=== PATIENT | male | born 1955 | race Caucasian/White ===

== ENCOUNTER 2016-10-09 20:35 | Inpatient (IN) | payer OTHER ==
[~2016-10-09] VITALS: Ht 172.7 cm; Wt 57.1 kg
[~2016-10-09 20:35] MED LIST: ADVAIR HFA120 INHALA IH; ADVIL200 MG PO; AERONEB GO NEB1 EACH MC; ALBUTEROL2.5 MG/3 M IH; ALEVE220 MG PO; AMLODIPINE BESY10 MG PO; AMLODIPINE BESYL5 MG PO; ASPIR 8181 M1 PO; ATROVENT 00.5 MG/2.5 IH; CEFDINIR300 MG PO; DUONEB 2.5-0.5 M3 ML IH; KEPPRA500 MG PO; LEVAQUIN500 MG PO; LEVETIRACETAM500 MG PO; LISINOPRIL10 MG PO; LISINOPRIL20 MG PO; LOSARTAN POTAS100 MG PO; NICOTINE PATCH1 EAC2 TD; OMEPRAZOLE20 MG PO; OXAPROZIN600 MG PO; PAROXETINE HCL20 MG PO; PREDNISONE10 MG PO; PREDNISONE20 MG PO; PROAIR HFA8.5 GM IH; PROVENTIL,2.5 MG/3 M IH; SPIRIVA RESPIMAT4 GM IH; SPIRIVA1 INHALATI IH; SYMBICORT60 INHALAT IH; TAMSULOSIN HCL0.4 MG PO; TRAVEL SICKNESS25 MG PO
[2016-10-09 21:30] LABS: EOSINOPHIL (%) 0.5 % (0-5); HEMATOCRIT 40.1 % (38.0-50.0); IMMATURE GRANULOCYTE (%) 0.3 % (0.0-0.7); IMMATURE GRANULOCYTE COUNT 0.2 K/uL; LYMPHOCYTE COUNT 1.3 K/uL (1.0-2.8); MCH 36.3 PG (29.0-34.0); MCHC 36.2 G/DL (30.0-36.0); MCV 100.3 FL (86-99); MEAN PLAT.VOLUME 8.9 uM^3 (9.0-12.4); MONOCYTE (%) 12.6 % (3-12); MONOCYTE COUNT 0.8 K/uL (0-0.8); NEUTROPHIL (%) 66.3 % (45-76); NEUTROPHIL COUNT 4.2 K/uL (1.8-6.4); PLATELET COUNT 181 K/uL (156-360); RBC DIS.WIDTH-SD 47.2 % (39-53); WHITE BLOOD COUNT 6.4 K/uL (4.1-10.2)
[2016-10-09 21:44] LABS: D-DIMER ELISA 0.52 mg/L FEU (< 0.57)
[2016-10-09 21:52] LABS: CHLORIDE 91 mEq/L (99-109); POTASSIUM 4.1 mEq/L (3.7-5.4); SODIUM 131 mEq/L (136-147)
[2016-10-09 21:54] LABS: GLUCOSE 82 mg/dL (70-99)
[2016-10-09 21:55] LABS: ANION GAP 12 MEQ/L (2-14)
[2016-10-09 21:56] LABS: TOTAL BILIRUBIN 0.5 mg/dL (0.0-1.0)
[2016-10-09 21:58] LABS: ALKALINE PHOSPHATASE 39 IU/L (3-129); GFR ESTIMATE (CALCULATED) > 59 mL/min/
[2016-10-09 21:59] LABS: UREA NITROGEN (BUN) 4 mg/dL (9-23)
[2016-10-09 22:04] LABS: TROP-I INTERPRETATION NEGATIVE; TROPONIN-I < 0.01 ng/mL (0.0-0.30)
[2016-10-10 00:11] VITALS: BP 167/78
[2016-10-10 04:03] VITALS: BP 105/66
[2016-10-10 09:50] VITALS: BP 154/78
[2016-10-10 12:00] VITALS: BP 152/80
[2016-10-10 16:00] VITALS: BP 141/86
[2016-10-10 19:41] VITALS: BP 170/80
[2016-10-11 03:56] VITALS: BP 173/77
[2016-10-11 06:45] VITALS: BP 150/80
[2016-10-11 16:00] VITALS: BP 154/86
[2016-10-12] VITALS: BP 120/62
[2016-10-12 00:25] VITALS: BP 150/70
[2016-10-12 07:43] VITALS: BP 186/100
[2016-10-12 15:53] VITALS: BP 164/88
[2016-10-12 20:00] VITALS: BP 150/72
[2016-10-13] VITALS (7 sets, daily range): BP systolic 152–194; BP diastolic 68–103
[2016-10-13 06:50] LABS: ALKALINE PHOSPHATASE 39 IU/L (3-129); ANION GAP 6 MEQ/L (2-14); CHLORIDE 97 MEQ/L (99-109); GFR ESTIMATE (CALCULATED) > 59 mL/min/; GLUCOSE 125 mg/dL (70-99); POTASSIUM 3.7 MEQ/L (3.7-5.4); SAMPLE HEMOLYSIS CHECK 0; SAMPLE ICTERIC CHECK 0; SAMPLE LIPEMIA CHECK 0; SODIUM 135 MEQ/L (136-147); TOTAL BILIRUBIN 0.4 MG/DL (0.0-1.0); UREA NITROGEN (BUN) 14 mg/dL (9-23)
[2016-10-13 07:22] LABS: EOSINOPHIL (%) 0 % (0-5); HEMATOCRIT 41.6 % (38.0-50.0); IMMATURE GRANULOCYTE (%) 0.3 % (0.0-0.7); LYMPHOCYTE COUNT 0.4 K/uL (1.0-2.8); MCH 35.8 PG (29.0-34.0); MCHC 33.9 G/DL (30.0-36.0); MONOCYTE (%) 3.6 % (3-12); MONOCYTE COUNT 0.5 K/uL (0-0.8); NEUTROPHIL COUNT 11.6 K/uL (1.8-6.4); RBC DIS.WIDTH-CV 13.4 % (11.8-14.6); RED BLOOD COUNT 3.94 M/uL (4.00-5.50)
[2016-10-13 07:25] LABS: MCV 105.6 FL (86-99); PLATELET COUNT 239 K/uL (156-360); WHITE BLOOD COUNT 12.5 K/uL (4.1-10.2)
[2016-10-14 03:10] VITALS: BP 192/84
[2016-10-14 06:40] LABS: HEMATOCRIT 39.8 % (38.0-50.0); MCH 36.5 PG (29.0-34.0); MCHC 34.7 G/DL (30.0-36.0); MCV 105.3 FL (86-99); MEAN PLAT.VOLUME 10.2 uM^3 (9.0-12.4); PLATELET COUNT 230 K/uL (156-360); RBC DIS.WIDTH-CV 13.2 % (11.8-14.6); RBC DIS.WIDTH-SD 50.6 % (39-53); RED BLOOD COUNT 3.78 M/uL (4.00-5.50); WHITE BLOOD COUNT 9.6 K/uL (4.1-10.2)
[2016-10-14 07:19] LABS: ALKALINE PHOSPHATASE 32 IU/L (3-129); ANION GAP 6 MEQ/L (2-14); CHLORIDE 98 MEQ/L (99-109); GFR ESTIMATE (CALCULATED) > 59 mL/min/; GLUCOSE 91 mg/dL (70-99); POTASSIUM 3.4 MEQ/L (3.7-5.4); SAMPLE HEMOLYSIS CHECK 0; SAMPLE ICTERIC CHECK 0; SAMPLE LIPEMIA CHECK 0; SODIUM 136 MEQ/L (136-147); TOTAL BILIRUBIN 0.4 MG/DL (0.0-1.0); UREA NITROGEN (BUN) 13 mg/dL (9-23)
[2016-10-14 08:05] VITALS: BP 202/98
[2016-10-14 09:50] LABS: BASE EXCESS 8.4 mEq/L (-3 to +3); BICARBONATE 35.3 mEq/L (22-26); CARBOXY HGB 2.5 % (0-5); METHEMOGLOBIN 1.4 % (0-1.5); PCO2 57 mm Hg (35-45); PO2 78 mm Hg (80-100)
[2016-10-14 09:52] LABS: COMMENTS - BLOOD GASES A+C+; DEVICE NC; O2 FLOW 2 L/MIN; SITE RR; TOTAL RESP RATE 12 resp/min
[2016-10-14 12:10] VITALS: BP 196/89
[2016-10-14 16:32] VITALS: BP 155/87
[2016-10-14 19:10] VITALS: BP 189/81
[2016-10-14 23:05] VITALS: BP 131/70
[2016-10-15 03:30] VITALS: BP 198/91
[2016-10-15 06:40] VITALS: BP 170/80
[2016-10-15 11:20] VITALS: BP 168/84
[2016-10-15 15:00] VITALS: BP 174/80
[2016-10-15 23:24] VITALS: BP 187/78
[2016-10-16 03:32] VITALS: BP 157/89
[2016-10-16 08:12] VITALS: BP 150/80
[2016-10-16 09:28] LABS: HEMATOCRIT 41.7 % (38.0-50.0); MCH 35.5 PG (29.0-34.0); MCHC 34.5 G/DL (30.0-36.0); MCV 102.7 FL (86-99); MEAN PLAT.VOLUME 10.2 uM^3 (9.0-12.4); PLATELET COUNT 238 K/uL (156-360); RBC DIS.WIDTH-SD 48.9 % (39-53); RED BLOOD COUNT 4.06 M/uL (4.00-5.50)
[2016-10-16 09:29] LABS: WHITE BLOOD COUNT 6.3 K/uL (4.1-10.2)
[2016-10-16 10:04] LABS: ALKALINE PHOSPHATASE 31 IU/L (3-129); ANION GAP 8 MEQ/L (2-14); CHLORIDE 95 MEQ/L (99-109); GFR ESTIMATE (CALCULATED) > 59 mL/min/; GLUCOSE 110 mg/dL (70-99); POTASSIUM 3.1 MEQ/L (3.7-5.4); SAMPLE HEMOLYSIS CHECK 0; SAMPLE ICTERIC CHECK 0; SAMPLE LIPEMIA CHECK 0; SODIUM 136 MEQ/L (136-147); TOTAL BILIRUBIN 0.5 MG/DL (0.0-1.0); UREA NITROGEN (BUN) 14 mg/dL (9-23)
[2016-10-16 15:34] VITALS: BP 156/82
[2016-10-16 16:00] VITALS: BP 107/75
[2016-10-16] MEDS ORDERED: TAMSULOSIN HCL0.4 MG PO (17:42)
[2016-10-16] MEDS ORDERED: IBUPROFEN800 MG PO (17:42)
[2016-10-16] MEDS ORDERED: LEVETIRACETAM500 MG PO (17:42)
[2016-10-16] MEDS ORDERED: FOLIC ACID1 MG PO (17:42)
[2016-10-16] MEDS ORDERED: SPIRIVA RESPIMAT4 GM IH (17:42)
[2016-10-16] MEDS ORDERED: APRESOLINE100 MG PO (17:42)
[2016-10-16] MEDS ORDERED: ADVAIR HFA120 INHAL1 IH (17:42)
[2016-10-16] MEDS ORDERED: PANTOPRAZOLE SO40 MG PO (17:42)
[2016-10-16] MEDS ORDERED: PREDNISONE5 MG PO (17:42)
[2016-10-16] MEDS ORDERED: DUONEB 2.5-0.5 M3 ML AEROSOL (17:42)
[2016-10-16] MEDS ORDERED: THERAGRAN1 TABLET PO (17:42)
[2016-10-16] MEDS ORDERED: LEVAQUIN500 MG PO (17:42)
== END 2016-10-16 18:40 | disposition home health service (06) | DRG 190 ==
LOC: EME → EDBD 20:35 → 2EAST 23:00 → EDOF 23:00 → 2EAST 10-10 00:04
PROVIDERS: Emergency Medicine; Internal Medicine
DX: J44.0 Chronic obstructive pulmonary disease with (acute) lower respiratory infection (principal); J96.20 Acute and chronic respiratory failure, unspecified whether with hypoxia or hypercapnia; E87.1 Hypo-osmolality and hyponatremia; J44.1 Chronic obstructive pulmonary disease with (acute) exacerbation; I10 Essential (primary) hypertension; F10.20 Alcohol dependence, uncomplicated; Z99.81 Dependence on supplemental oxygen; G40.909 Epilepsy, unspecified, not intractable, without status epilepticus; J20.9 Acute bronchitis, unspecified; F17.210 Nicotine dependence, cigarettes, uncomplicated
CPT/HCPCS: 36600; 71010; 71260; 80053; 82803; 83735; 83880; 84484; 85025; 85027; 85379; 93005; 94640; 94640 76; 94644; 94760; 94799; 99202; 99281; 99285; J0360; J0456; J0692; J1100; J1650; J2060; J2930; J3475; J7030; J7042; J7050; J7512; J7644

== ENCOUNTER 2016-11-22 18:39 | Inpatient (IN) | payer OTHER ==
[~2016-11-22] VITALS: Ht 172.7 cm; Wt 55.6 kg
[~2016-11-22 18:39] MED LIST changes: +ADVAIR HFA120 INHAL1 IH; +APRESOLINE100 MG PO; +DUONEB 2.5-0.5 M3 ML AEROSOL; +FOLIC ACID1 MG PO; +IBUPROFEN800 MG PO; +PANTOPRAZOLE SO40 MG PO; +PREDNISONE5 MG PO; +THERAGRAN1 TABLET PO
[2016-11-22 18:59] LABS: EOSINOPHIL (%) 0 % (0-5); HEMATOCRIT 32.1 % (38.0-50.0); IMMATURE GRANULOCYTE (%) 0.6 % (0.0-0.7); IMMATURE GRANULOCYTE COUNT 0.6 K/uL; LYMPHOCYTE COUNT 0.9 K/uL (1.0-2.8); MCHC 35.5 G/DL (30.0-36.0); MCV 98.5 FL (86-99); MONOCYTE (%) 7.2 % (3-12); MONOCYTE COUNT 0.7 K/uL (0-0.8); NEUTROPHIL (%) 83.3 % (45-76); NEUTROPHIL COUNT 8.5 K/uL (1.8-6.4); PLATELET COUNT 270 K/uL (156-360); RBC DIS.WIDTH-CV 12.2 % (11.8-14.6); RBC DIS.WIDTH-SD 41.7 % (39-53); RED BLOOD COUNT 3.26 M/uL (4.00-5.50); WHITE BLOOD COUNT 10.2 K/uL (4.1-10.2)
[2016-11-22 19:17] LABS: CHLORIDE 87 mEq/L (99-109); POTASSIUM 3.6 mEq/L (3.7-5.4); SODIUM 132 mEq/L (136-147)
[2016-11-22 19:19] LABS: GLUCOSE 93 mg/dL (70-99)
[2016-11-22 19:20] LABS: ANION GAP 13 MEQ/L (2-14)
[2016-11-22 19:21] LABS: TOTAL BILIRUBIN 0.2 mg/dL (0.0-1.0)
[2016-11-22 19:22] LABS: ALKALINE PHOSPHATASE 49 IU/L (3-129)
[2016-11-22 19:23] LABS: GFR ESTIMATE (CALCULATED) > 59 mL/min/
[2016-11-22 19:24] LABS: UREA NITROGEN (BUN) 21 mg/dL (9-23)
[2016-11-22 19:24] LABS: BICARBONATE 38.1 mEq/L (22-26); CARBOXY HGB 5.2 % (0-5); METHEMOGLOBIN 1.4 % (0-1.5); pH 7.49 (7.35-7.45)
[2016-11-22 19:27] LABS: TROP-I INTERPRETATION NEGATIVE; TROPONIN-I 0.01 ng/mL (0.0-0.30)
[2016-11-22 19:28] LABS: COMMENTS - BLOOD GASES A+C+; CONTINUOUS POS AIRWAY PRESSURE 5 cm H2O; DEVICE VENT VIA MASK; FI02 40 %; MODE SPON; PCO2 50 mm Hg (35-45); PO2 188 mm Hg (80-100); PRES. SUPPORT 10 CM/H2O; SITE RR; TOTAL RESP RATE 14 resp/min
[2016-11-22 19:48] LABS: INFLUENZA A VIRAL ANTIGEN NEGATIVE; INFLUENZA B VIRAL ANTIGEN NEGATIVE
[2016-11-22] MEDS ORDERED: OMEPRAZOLE20 MG PO (21:18)
[2016-11-22] MEDS ORDERED: DOXYCYCLINE MO100 MG PO (21:19)
[2016-11-22] MEDS ORDERED: SYMBICORT60 INHALAT IH (21:19)
[2016-11-22] MEDS ORDERED: K-DUR10 MEQ PO (21:20)
[2016-11-22] MEDS ORDERED: IBUPROFEN600 MG PO (21:20)
[2016-11-22] MEDS ORDERED: PANTOPRAZOLE SO40 MG PO (21:20)
[2016-11-22] MEDS ORDERED: OXAPROZIN600 MG PO (21:21)
[2016-11-22] MEDS ORDERED: DELTASONE20 M1 PO (21:21)
[2016-11-22] MEDS ORDERED: FUROSEMIDE40 MG PO (21:21)
[2016-11-22] MEDS ORDERED: DAILY VITE1 EAC1 PO (21:22)
[2016-11-22] MEDS ORDERED: PAXIL20 MG PO (21:22)
[2016-11-22] MEDS ORDERED: NYSTATIN100000 UN1 PO (21:22)
[2016-11-22] MEDS ORDERED: VENTOLIN HFA18 GM IH (21:23)
[2016-11-22] MEDS ORDERED: PREDNISONE20 MG PO (21:24)
[2016-11-22] MEDS ORDERED: LORAZEPAM0.5 MG PO (21:24)
[2016-11-22] MEDS ORDERED: FOLIC ACID1 MG PO (21:24)
[2016-11-22 23:19] VITALS: BP 173/78
[2016-11-23 08:30] VITALS: BP 170/71
[2016-11-23 10:23] LABS: BASE EXCESS 6.4 mEq/L (-3 to +3); CARBOXY HGB 2.3 % (0-5); METHEMOGLOBIN 1.6 % (0-1.5)
[2016-11-23 10:25] LABS: COMMENTS - BLOOD GASES A+C+; DEVICE MASK; O2 FLOW 8 L/MIN; PCO2 63 mm Hg (35-45); PO2 85 mm Hg (80-100); SITE LR; TOTAL RESP RATE 26 resp/min; pH 7.34 (7.35-7.45)
[2016-11-23 11:06] LABS: HEMATOCRIT 30.5 % (38.0-50.0); MCH 35.7 PG (29.0-34.0); MCHC 36.1 G/DL (30.0-36.0); PLATELET COUNT 268 K/uL (156-360); RBC DIS.WIDTH-CV 12.8 % (11.8-14.6); RED BLOOD COUNT 3.08 M/uL (4.00-5.50); WHITE BLOOD COUNT 10.1 K/uL (4.1-10.2)
[2016-11-23 11:23] LABS: ANION GAP 10 MEQ/L (2-14); CHLORIDE 89 MEQ/L (99-109); POTASSIUM 3.9 MEQ/L (3.7-5.4); SAMPLE HEMOLYSIS CHECK 0; SAMPLE ICTERIC CHECK 0; SAMPLE LIPEMIA CHECK 0; SODIUM 132 MEQ/L (136-147)
[2016-11-23 11:27] LABS: TROP-I INTERPRETATION NEGATIVE; TROPONIN-I < 0.01 ng/mL (0.0-0.30)
[2016-11-23 11:29] LABS: GFR ESTIMATE (CALCULATED) > 59 mL/min/; UREA NITROGEN (BUN) 24 mg/dL (9-23)
[2016-11-23 11:31] LABS: GLUCOSE 212 mg/dL (70-99)
[2016-11-23 16:35] VITALS: BP 138/81
[2016-11-23 19:40] VITALS: BP 175/89
[2016-11-23 23:54] VITALS: BP 145/73
[2016-11-24 04:27] VITALS: BP 161/80
[2016-11-24 08:10] VITALS: BP 186/90
[2016-11-24 11:30] VITALS: BP 159/76
[2016-11-24 16:30] VITALS: BP 143/75
[2016-11-24 19:39] VITALS: BP 154/70
[2016-11-24 23:48] VITALS: BP 166/73
[2016-11-25 04:06] VITALS: BP 160/72
[2016-11-25 08:30] VITALS: BP 197/71
[2016-11-25 11:30] VITALS: BP 190/88
[2016-11-25 16:30] VITALS: BP 142/74
[2016-11-25 19:45] VITALS: BP 175/87
[2016-11-26] VITALS (8 sets, daily range): BP systolic 140–181; BP diastolic 71–85
[2016-11-26 05:42] LABS: HEMATOCRIT 31.6 % (38.0-50.0); MCH 35.3 PG (29.0-34.0); MCHC 34.8 G/DL (30.0-36.0); MCV 101.3 FL (86-99); PLATELET COUNT 281 K/uL (156-360); RBC DIS.WIDTH-CV 12.8 % (11.8-14.6); RBC DIS.WIDTH-SD 46.7 % (39-53); RED BLOOD COUNT 3.12 M/uL (4.00-5.50); WHITE BLOOD COUNT 8.9 K/uL (4.1-10.2)
[2016-11-26 06:39] LABS: ANION GAP 8 MEQ/L (2-14); CHLORIDE 89 MEQ/L (99-109); GFR ESTIMATE (CALCULATED) > 59 mL/min/; GLUCOSE 157 mg/dL (70-99); SAMPLE HEMOLYSIS CHECK 0; SAMPLE ICTERIC CHECK 0; SAMPLE LIPEMIA CHECK 0; SODIUM 135 MEQ/L (136-147); UREA NITROGEN (BUN) 27 mg/dL (9-23)
[2016-11-27 08:10] VITALS: BP 159/75
[2016-11-27 12:24] VITALS: BP 142/70
[2016-11-27 15:55] VITALS: BP 163/90
[2016-11-27 19:37] VITALS: BP 168/79
[2016-11-27 23:45] VITALS: BP 182/84
[2016-11-28] VITALS (7 sets, daily range): BP systolic 151–185; BP diastolic 78–95
[2016-11-28 06:01] LABS: MCH 33.6 PG (29.0-34.0); MCHC 33.4 G/DL (30.0-36.0); MCV 100.6 FL (86-99); MEAN PLAT.VOLUME 8.6 uM^3 (9.0-12.4); PLATELET COUNT 234 K/uL (156-360); RBC DIS.WIDTH-SD 47.4 % (39-53); RED BLOOD COUNT 3.18 M/uL (4.00-5.50); WHITE BLOOD COUNT 8.6 K/uL (4.1-10.2)
[2016-11-28 06:34] LABS: ALKALINE PHOSPHATASE 38 IU/L (3-129); ANION GAP 7 MEQ/L (2-14); CHLORIDE 93 MEQ/L (99-109); GFR ESTIMATE (CALCULATED) > 59 mL/min/; POTASSIUM 3.6 MEQ/L (3.7-5.4); SAMPLE HEMOLYSIS CHECK 0; SAMPLE ICTERIC CHECK 0; SAMPLE LIPEMIA CHECK 0; SODIUM 136 MEQ/L (136-147); TOTAL BILIRUBIN 0.3 MG/DL (0.0-1.0); UREA NITROGEN (BUN) 30 mg/dL (9-23)
[2016-11-28 06:47] LABS: GLUCOSE 94 mg/dL (70-99)
[2016-11-29] VITALS (7 sets, daily range): BP systolic 139–181; BP diastolic 60–91
[2016-11-30 00:12] VITALS: BP 173/85
[2016-11-30 04:50] VITALS: BP 176/86
[2016-11-30 08:28] VITALS: BP 155/75
[2016-11-30 11:30] VITALS: BP 151/79
[2016-11-30] MEDS ORDERED: MONTELUKAST SOD10 MG PO (13:46)
[2016-11-30] MEDS ORDERED: CHLORDIAZEPOXID25 MG PO (13:46)
[2016-11-30] MEDS ORDERED: SPIRIVA RESPIMAT4 GM IH (13:46)
[2016-11-30] MEDS ORDERED: NICOTINE PATCH1 EAC2 TD (13:46)
[2016-11-30] MEDS ORDERED: DUONEB 2.5-0.5 M3 ML AEROSOL (13:46)
[2016-11-30] MEDS ORDERED: MORPHINE CON20 MG/M1 SL (13:46)
[2016-11-30] MEDS ORDERED: MEFOXIN IV (13:55)
[2016-11-30 16:30] VITALS: BP 123/78
== END 2016-11-30 17:56 | DRG 190 ==
LOC: EME → EDBD 18:39 → EDOF 21:47 → 3EAST 21:47
PROVIDERS: Emergency Medicine; Hospitalist; Internal Medicine
PROC: 5A09357 Assistance with Respiratory Ventilation, Less than 24 Consecutive Hours, Continuous Positive Airway Pressure (ICD-10-PCS; principal; 2016-11-22)
DX: J44.1 Chronic obstructive pulmonary disease with (acute) exacerbation (principal); J96.22 Acute and chronic respiratory failure with hypercapnia; J96.01 Acute respiratory failure with hypoxia; E87.1 Hypo-osmolality and hyponatremia; I16.1 Hypertensive emergency; F33.9 Major depressive disorder, recurrent, unspecified; F10.20 Alcohol dependence, uncomplicated; G40.909 Epilepsy, unspecified, not intractable, without status epilepticus; F41.9 Anxiety disorder, unspecified; E87.6 Hypokalemia; F17.200 Nicotine dependence, unspecified, uncomplicated; Z99.81 Dependence on supplemental oxygen; J20.9 Acute bronchitis, unspecified; J44.0 Chronic obstructive pulmonary disease with (acute) lower respiratory infection; Z91.19 Patient's noncompliance with other medical treatment and regimen
CPT/HCPCS: 36600; 71010; 80048; 80053; 82803; 83880; 84484; 85025; 85027; 87502; 92610 GN; 93005; 94002; 94640; 94640 76; 94644; 94660; 94760; 94799; 99202; 99281; 99285; J0456; J0692; J1100; J1650; J2060; J2930; J3475; J7050; J7512; J7644

== ENCOUNTER 2016-12-27 12:29 | Inpatient (IN) | payer OTHER ==
[~2016-12-27] VITALS: Ht 170.2 cm; Wt 57.5 kg
[~2016-12-27 12:29] MED LIST changes: +CHLORDIAZEPOXID25 MG PO; +DAILY VITE1 EAC1 PO; +DELTASONE20 M1 PO; +DOXYCYCLINE MO100 MG PO; +FUROSEMIDE40 MG PO; +IBUPROFEN600 MG PO; +K-DUR10 MEQ PO; +LORAZEPAM0.5 MG PO; +MEFOXIN IV; +MONTELUKAST SOD10 MG PO; +MORPHINE CON20 MG/M1 SL; +NYSTATIN100000 UN1 PO; +PAXIL20 MG PO; +VENTOLIN HFA18 GM IH
[2016-12-27 13:17] LABS: HEMATOCRIT 29.5 % (38.0-50.0); MCH 34.7 PG (29.0-34.0); MCHC 34.9 G/DL (30.0-36.0); MCV 99.3 FL (86-99); MEAN PLAT.VOLUME 8.8 uM^3 (9.0-12.4); PLATELET COUNT 288 K/uL (156-360); RBC DIS.WIDTH-CV 13.1 % (11.8-14.6); RBC DIS.WIDTH-SD 47.2 % (39-53); RED BLOOD COUNT 2.97 M/uL (4.00-5.50); WHITE BLOOD COUNT 7.6 K/uL (4.1-10.2)
[2016-12-27 13:26] LABS: CHLORIDE 95 mEq/L (99-109); POTASSIUM 3.8 mEq/L (3.7-5.4); SODIUM 134 mEq/L (136-147)
[2016-12-27 13:27] LABS: GLUCOSE 84 mg/dL (70-99)
[2016-12-27 13:29] LABS: ANION GAP 16 MEQ/L (2-14)
[2016-12-27 13:31] LABS: GFR ESTIMATE (CALCULATED) 47 mL/min/
[2016-12-27 13:32] LABS: UREA NITROGEN (BUN) 25 mg/dL (9-23)
[2016-12-27] MEDS ORDERED: LISINOPRIL20 MG PO (14:06)
[2016-12-27 14:09] LABS: TROP-I INTERPRETATION NEGATIVE; TROPONIN-I < 0.01 ng/mL (0.0-0.30)
[2016-12-27] MEDS ORDERED: SINGULAIR10 MG PO (16:02)
[2016-12-27] MEDS ORDERED: LOW DOSE ASPIRI81 M1 PO (16:06)
[2016-12-27] MEDS ORDERED: TUDORZA PRESS400 MCG IH (16:06)
[2016-12-27] MEDS ORDERED: OXAPROZIN600 MG PO (16:07)
[2016-12-27 18:14] VITALS: BP 149/76
[2016-12-27 20:06] VITALS: BP 134/67
[2016-12-27 22:01] LABS: TROP-I INTERPRETATION NEGATIVE; TROPONIN-I 0.02 ng/mL (0.0-0.30)
[2016-12-28 03:24] VITALS: BP 109/63
[2016-12-28 07:29] LABS: TROP-I INTERPRETATION NEGATIVE; TROPONIN-I 0.01 ng/mL (0.0-0.30)
[2016-12-28 08:11] VITALS: BP 109/61
[2016-12-28 10:30] VITALS: BP 100/56
[2016-12-28 16:31] VITALS: BP 107/59
[2016-12-28 19:45] VITALS: BP 109/55
[2016-12-29] VITALS (8 sets, daily range): BP systolic 109–146; BP diastolic 57–70
[2016-12-30 04:07] VITALS: BP 158/65
[2016-12-30 08:25] VITALS: BP 124/71
[2016-12-30 12:25] VITALS: BP 122/70
[2016-12-30 16:50] VITALS: BP 123/72
[2016-12-30 19:42] VITALS: BP 105/55
[2016-12-30 23:46] VITALS: BP 123/66
[2016-12-31 04:09] VITALS: BP 128/62
[2016-12-31 07:55] LABS: MCH 34.4 PG (29.0-34.0); MCHC 33.9 G/DL (30.0-36.0); MCV 101.4 FL (86-99); MEAN PLAT.VOLUME 8.7 uM^3 (9.0-12.4); RBC DIS.WIDTH-CV 13.1 % (11.8-14.6); RBC DIS.WIDTH-SD 48.4 % (39-53); RED BLOOD COUNT 2.76 M/uL (4.00-5.50)
[2016-12-31 07:58] LABS: ALKALINE PHOSPHATASE 38 IU/L (3-129); ANION GAP 8 MEQ/L (2-14); CHLORIDE 99 MEQ/L (99-109); GFR ESTIMATE (CALCULATED) > 59 mL/min/; GLUCOSE 106 mg/dL (70-99); SAMPLE HEMOLYSIS CHECK 0; SAMPLE ICTERIC CHECK 0; SAMPLE LIPEMIA CHECK 0; SODIUM 135 MEQ/L (136-147); TOTAL BILIRUBIN 0.3 MG/DL (0.0-1.0); UREA NITROGEN (BUN) 31 mg/dL (9-23)
[2016-12-31 08:06] LABS: PLATELET COUNT 382 K/uL (156-360); WHITE BLOOD COUNT 15.8 K/uL (4.1-10.2)
[2016-12-31 09:00] VITALS: BP 151/70
[2016-12-31 12:00] VITALS: BP 136/74
[2016-12-31 16:00] VITALS: BP 182/82
== END 2016-12-31 20:15 | disposition home or self-care (01) | DRG 190 ==
LOC: EME 12:29 → 5WEST 16:13 → EDOF 16:13 → 5WEST 17:58 → 4SOUTH 12-28 11:22
PROVIDERS: Emergency Medicine; Internal Medicine
DX: J44.0 Chronic obstructive pulmonary disease with (acute) lower respiratory infection (principal); J96.01 Acute respiratory failure with hypoxia; Z68.1 Body mass index [BMI] 19.9 or less, adult; F10.20 Alcohol dependence, uncomplicated; J20.9 Acute bronchitis, unspecified; G40.909 Epilepsy, unspecified, not intractable, without status epilepticus; I73.9 Peripheral vascular disease, unspecified; F17.210 Nicotine dependence, cigarettes, uncomplicated; F41.9 Anxiety disorder, unspecified; M95.4 Acquired deformity of chest and rib; R63.6 Underweight
CPT/HCPCS: 71020; 80048; 80053; 84484; 85027; 93005; 93926; 94640; 94640 76; 94799; 99202; 99281; 99285; G0378; J1650; J2930

== ENCOUNTER 2017-01-09 18:32 | Inpatient (IN) | payer OTHER ==
[~2017-01-09] VITALS: Ht 170.2 cm; Wt 59.0 kg
[~2017-01-09 18:32] MED LIST changes: +LOW DOSE ASPIRI81 M1 PO; +SINGULAIR10 MG PO; +TUDORZA PRESS400 MCG IH
[2017-01-09 19:46] LABS: EOSINOPHIL (%) 0 % (0-5); HEMATOCRIT 23.5 % (38.0-50.0); IMMATURE GRANULOCYTE (%) 2.3 % (0.0-0.7); IMMATURE GRANULOCYTE COUNT 0.4 K/uL; INSTRUMENT ABS NEUTROPHIL CT 14.1 K/uL; LYMPHOCYTE COUNT 0.6 K/uL (1.0-2.8); MCH 35.3 PG (29.0-34.0); MCHC 34.9 G/DL (30.0-36.0); MCV 101.3 FL (86-99); MEAN PLAT.VOLUME 8.3 uM^3 (9.0-12.4); MONOCYTE COUNT 1.3 K/uL (0-0.8); NEUTROPHIL (%) 85.8 % (45-76); NEUTROPHIL COUNT 14.1 K/uL (1.8-6.4); PLATELET COUNT 285 K/uL (156-360); RBC DIS.WIDTH-CV 13.4 % (11.8-14.6); RBC DIS.WIDTH-SD 49.7 % (39-53); RED BLOOD COUNT 2.32 M/uL (4.00-5.50); WHITE BLOOD COUNT 16.4 K/uL (4.1-10.2)
[2017-01-09 19:58] LABS: CHLORIDE 94 mEq/L (99-109); POTASSIUM 4.3 mEq/L (3.7-5.4); SODIUM 129 mEq/L (136-147)
[2017-01-09 19:59] LABS: MAGNESIUM 1.6 mg/dL (1.3-2.7)
[2017-01-09 20:00] LABS: GLUCOSE 104 mg/dL (70-99)
[2017-01-09 20:02] LABS: ANION GAP 14 MEQ/L (2-14)
[2017-01-09 20:04] LABS: GFR ESTIMATE (CALCULATED) 32 mL/min/
[2017-01-09 20:05] LABS: UREA NITROGEN (BUN) 55 mg/dL (9-23)
[2017-01-09 20:06] LABS: PROTHROMBIN TIME 9.9 (9.2-11.2)
[2017-01-09 20:09] LABS: TROP-I INTERPRETATION NEGATIVE; TROPONIN-I 0.07 ng/mL (0.0-0.30)
[2017-01-09] MEDS ORDERED: HYDRALAZINE HC100 MG PO (21:20)
[2017-01-09] MEDS ORDERED: KEPPRA500 MG PO (21:21)
[2017-01-09] MEDS ORDERED: CILOSTAZOL100 MG PO (21:23)
[2017-01-09] MEDS ORDERED: BACTRIM,SEPT1 TABLET PO (21:23)
[2017-01-09] MEDS ORDERED: VENTOLIN HFA18 GM IH (21:23)
[2017-01-09] MEDS ORDERED: PROTONIX20 MG PO (21:23)
[2017-01-09] MEDS ORDERED: [UNRECOGNIZED DRUG - REMARK] ×2 (21:25→21:26)
[2017-01-10 01:18] VITALS: BP 125/63
[2017-01-10 06:56] VITALS: BP 139/59
[2017-01-10 15:24] VITALS: BP 109/59
[2017-01-10 22:57] VITALS: BP 114/55
[2017-01-11] VITALS (11 sets, daily range): BP systolic 112–143; BP diastolic 53–94
[2017-01-11 06:34] LABS: HEMATOCRIT 19.4 % (38.0-50.0); MCH 35.3 PG (29.0-34.0); MCV 103.7 FL (86-99); MEAN PLAT.VOLUME 8.7 uM^3 (9.0-12.4); PLATELET COUNT 252 K/uL (156-360); RBC DIS.WIDTH-CV 13.3 % (11.8-14.6); RBC DIS.WIDTH-SD 49.5 % (39-53); RED BLOOD COUNT 1.87 M/uL (4.00-5.50)
[2017-01-11 06:37] LABS: WHITE BLOOD COUNT 11.2 K/uL (4.1-10.2)
[2017-01-11 06:57] LABS: ALKALINE PHOSPHATASE 24 IU/L (3-129); ANION GAP 8 MEQ/L (2-14); CHLORIDE 102 MEQ/L (99-109); GFR ESTIMATE (CALCULATED) > 59 mL/min/; GLUCOSE 103 mg/dL (70-99); POTASSIUM 4.1 MEQ/L (3.7-5.4); SAMPLE HEMOLYSIS CHECK 0; SAMPLE ICTERIC CHECK 0; SAMPLE LIPEMIA CHECK 0; SODIUM 133 MEQ/L (136-147); TOTAL BILIRUBIN 0.2 MG/DL (0.0-1.0); UREA NITROGEN (BUN) 36 mg/dL (9-23)
[2017-01-12 07:48] VITALS: BP 148/69
[2017-01-12 15:45] VITALS: BP 144/67
[2017-01-12 22:51] VITALS: BP 151/68
[2017-01-13 06:25] LABS: EOSINOPHIL (%) 0 % (0-5); HEMATOCRIT 26.8 % (38.0-50.0); IMMATURE GRANULOCYTE (%) 4.5 % (0.0-0.7); IMMATURE GRANULOCYTE COUNT 0.6 K/uL; INSTRUMENT ABS NEUTROPHIL CT 11.7 K/uL; LYMPHOCYTE COUNT 0.4 K/uL (1.0-2.8); MCH 32.8 PG (29.0-34.0); MCHC 33.2 G/DL (30.0-36.0); MEAN PLAT.VOLUME 8.8 uM^3 (9.0-12.4); MONOCYTE (%) 6.2 % (3-12); MONOCYTE COUNT 0.8 K/uL (0-0.8); NEUTROPHIL (%) 86.3 % (45-76); NEUTROPHIL COUNT 11.7 K/uL (1.8-6.4); PLATELET COUNT 262 K/uL (156-360); RBC DIS.WIDTH-CV 15.2 % (11.8-14.6); RBC DIS.WIDTH-SD 54.8 % (39-53); WHITE BLOOD COUNT 13.5 K/uL (4.1-10.2)
[2017-01-13 06:31] LABS: MCV 98.9 FL (86-99); RED BLOOD COUNT 2.71 M/uL (4.00-5.50)
[2017-01-13 06:40] LABS: ANION GAP 6 MEQ/L (2-14); CHLORIDE 104 MEQ/L (99-109); GFR ESTIMATE (CALCULATED) > 59 mL/min/; GLUCOSE 146 mg/dL (70-99); SAMPLE HEMOLYSIS CHECK 0; SAMPLE ICTERIC CHECK 0; SAMPLE LIPEMIA CHECK 0; SODIUM 137 MEQ/L (136-147); UREA NITROGEN (BUN) 21 mg/dL (9-23)
[2017-01-13 07:20] VITALS: BP 152/80
[2017-01-13 16:08] VITALS: BP 135/82
[2017-01-13 22:40] VITALS: BP 160/87
[2017-01-14 06:25] LABS: EOSINOPHIL (%) 0 % (0-5); HEMATOCRIT 25.4 % (38.0-50.0); IMMATURE GRANULOCYTE (%) 3.2 % (0.0-0.7); IMMATURE GRANULOCYTE COUNT 0.4 K/uL; INSTRUMENT ABS NEUTROPHIL CT 11.1 K/uL; LYMPHOCYTE COUNT 0.4 K/uL (1.0-2.8); MCH 32.4 PG (29.0-34.0); MCHC 33.1 G/DL (30.0-36.0); MCV 98.1 FL (86-99); MEAN PLAT.VOLUME 8.8 uM^3 (9.0-12.4); MONOCYTE (%) 6.1 % (3-12); MONOCYTE COUNT 0.8 K/uL (0-0.8); NEUTROPHIL (%) 87.8 % (45-76); NEUTROPHIL COUNT 11.1 K/uL (1.8-6.4); NRBC (%) 0.2 /100 WBC (0-0); PLATELET COUNT 251 K/uL (156-360); RBC DIS.WIDTH-CV 14.7 % (11.8-14.6); RBC DIS.WIDTH-SD 53.1 % (39-53); RED BLOOD COUNT 2.59 M/uL (4.00-5.50); WHITE BLOOD COUNT 12.7 K/uL (4.1-10.2)
[2017-01-14 06:42] LABS: ALKALINE PHOSPHATASE 38 IU/L (3-129); ANION GAP 6 MEQ/L (2-14); CHLORIDE 104 MEQ/L (99-109); GFR ESTIMATE (CALCULATED) > 59 mL/min/; GLUCOSE 117 mg/dL (70-99); POTASSIUM 3.9 MEQ/L (3.7-5.4); SAMPLE HEMOLYSIS CHECK 0; SAMPLE ICTERIC CHECK 0; SAMPLE LIPEMIA CHECK 0; SODIUM 140 MEQ/L (136-147); TOTAL BILIRUBIN 0.2 MG/DL (0.0-1.0); UREA NITROGEN (BUN) 17 mg/dL (9-23)
[2017-01-14 06:58] VITALS: BP 145/59
[2017-01-14 16:32] VITALS: BP 164/72
[2017-01-14 22:41] VITALS: BP 150/79
[2017-01-15 06:19] LABS: HEMATOCRIT 26.4 % (38.0-50.0); MCH 32.7 PG (29.0-34.0); MCHC 33.7 G/DL (30.0-36.0); MCV 97.1 FL (86-99); MEAN PLAT.VOLUME 8.9 uM^3 (9.0-12.4); NRBC (%) 0.2 /100 WBC (0-0); PLATELET COUNT 270 K/uL (156-360); RBC DIS.WIDTH-CV 14.6 % (11.8-14.6); RBC DIS.WIDTH-SD 51.6 % (39-53); RED BLOOD COUNT 2.72 M/uL (4.00-5.50); WHITE BLOOD COUNT 11.1 K/uL (4.1-10.2)
[2017-01-15 06:39] LABS: ANION GAP 8 MEQ/L (2-14); CHLORIDE 101 MEQ/L (99-109); GFR ESTIMATE (CALCULATED) > 59 mL/min/; GLUCOSE 116 mg/dL (70-99); POTASSIUM 3.3 MEQ/L (3.7-5.4); SAMPLE HEMOLYSIS CHECK 0; SAMPLE ICTERIC CHECK 0; SAMPLE LIPEMIA CHECK 0; SODIUM 141 MEQ/L (136-147); UREA NITROGEN (BUN) 20 mg/dL (9-23)
[2017-01-15 07:45] VITALS: BP 196/94
[2017-01-15 08:00] VITALS: BP 160/78
[2017-01-15 09:11] VITALS: BP 160/78
[2017-01-15 15:41] VITALS: BP 159/71
[2017-01-15 22:38] VITALS: BP 143/72
[2017-01-16 06:53] LABS: HEMATOCRIT 25.9 % (38.0-50.0); MCH 33.3 PG (29.0-34.0); MCV 98.1 FL (86-99); MEAN PLAT.VOLUME 8.8 uM^3 (9.0-12.4); NRBC (%) 0.2 /100 WBC (0-0); PLATELET COUNT 280 K/uL (156-360); RBC DIS.WIDTH-CV 14.6 % (11.8-14.6); RBC DIS.WIDTH-SD 52.2 % (39-53); RED BLOOD COUNT 2.64 M/uL (4.00-5.50); WHITE BLOOD COUNT 12.9 K/uL (4.1-10.2)
[2017-01-16 07:19] LABS: ANION GAP 8 MEQ/L (2-14); CHLORIDE 99 MEQ/L (99-109); GFR ESTIMATE (CALCULATED) > 59 mL/min/; POTASSIUM 3.3 MEQ/L (3.7-5.4); SAMPLE HEMOLYSIS CHECK 0; SAMPLE ICTERIC CHECK 0; SAMPLE LIPEMIA CHECK 0; SODIUM 141 MEQ/L (136-147); UREA NITROGEN (BUN) 24 mg/dL (9-23)
[2017-01-16 07:21] LABS: GLUCOSE 85 mg/dL (70-99)
[2017-01-16 08:15] VITALS: BP 182/96
[2017-01-16 11:46] VITALS: BP 165/85
[2017-01-16 16:53] VITALS: BP 124/70
[2017-01-16 22:40] VITALS: BP 150/84
[2017-01-17 07:57] VITALS: BP 164/75
[2017-01-17 16:25] VITALS: BP 150/76
[2017-01-17 19:50] VITALS: BP 135/65
[2017-01-18 00:54] VITALS: BP 110/56
[2017-01-18 08:18] VITALS: BP 112/67
[2017-01-18 15:33] VITALS: BP 119/62
[2017-01-18 23:51] VITALS: BP 123/67
[2017-01-19 06:27] LABS: HEMATOCRIT 24.4 % (38.0-50.0); MCH 33.1 PG (29.0-34.0); MCHC 33.6 G/DL (30.0-36.0); MCV 98.4 FL (86-99); MEAN PLAT.VOLUME 8.8 uM^3 (9.0-12.4); PLATELET COUNT 204 K/uL (156-360); RBC DIS.WIDTH-CV 15.4 % (11.8-14.6); RBC DIS.WIDTH-SD 55.6 % (39-53); RED BLOOD COUNT 2.48 M/uL (4.00-5.50)
[2017-01-19 06:32] LABS: WHITE BLOOD COUNT 6.7 K/uL (4.1-10.2)
[2017-01-19 06:42] LABS: ALKALINE PHOSPHATASE 29 IU/L (3-129); ANION GAP 6 MEQ/L (2-14); CHLORIDE 93 MEQ/L (99-109); GFR ESTIMATE (CALCULATED) > 59 mL/min/; GLUCOSE 93 mg/dL (70-99); POTASSIUM 2.8 MEQ/L (3.7-5.4); SAMPLE HEMOLYSIS CHECK 0; SAMPLE ICTERIC CHECK 0; SAMPLE LIPEMIA CHECK 0; SODIUM 139 MEQ/L (136-147); UREA NITROGEN (BUN) 14 mg/dL (9-23)
[2017-01-19 06:44] LABS: TOTAL BILIRUBIN 0.4 MG/DL (0.0-1.0)
[2017-01-19 07:15] VITALS: BP 133/72
[2017-01-19 15:12] VITALS: BP 104/58
[2017-01-19 22:58] VITALS: BP 129/74
[2017-01-20 09:22] VITALS: BP 145/73
[2017-01-20 17:03] VITALS: BP 88/53
[2017-01-20 22:54] VITALS: BP 120/56
[2017-01-21 07:12] VITALS: BP 114/59
[2017-01-21] MEDS ORDERED: MYCOSTATIN 100,60 ML PO (15:22)
[2017-01-21] MEDS ORDERED: PANTOPRAZOLE SO40 MG PO (15:24)
[2017-01-21] MEDS ORDERED: Thiamine,Vitamin B1 PO (15:25)
[2017-01-21] MEDS ORDERED: PREDNISONE20 MG PO (15:25)
[2017-01-21] MEDS ORDERED: THERAGRAN1 TABLET PO (15:26)
[2017-01-21 16:03] VITALS: BP 120/64
[2017-01-21 22:43] VITALS: BP 154/70
[2017-01-22 08:32] VITALS: BP 163/79
== END 2017-01-22 16:24 | disposition home or self-care (01) | DRG 190 ==
LOC: EME → EDBD 18:32 → 5EAST 21:08 → EDOF 21:08 → 5EAST 01-10 00:59
PROVIDERS: Emergency Medicine; Family Medicine; Internal Medicine
PROC: 30233N1 Transfusion of Nonautologous Red Blood Cells into Peripheral Vein, Percutaneous Approach (ICD-10-PCS; principal; 2017-01-11)
DX: J44.1 Chronic obstructive pulmonary disease with (acute) exacerbation (principal); J18.9 Pneumonia, unspecified organism; I74.9 Embolism and thrombosis of unspecified artery; N17.9 Acute kidney failure, unspecified; M54.2 Cervicalgia; R51 Headache; D64.9 Anemia, unspecified; F17.200 Nicotine dependence, unspecified, uncomplicated; F10.20 Alcohol dependence, uncomplicated; I10 Essential (primary) hypertension; K21.9 Gastro-esophageal reflux disease without esophagitis; F41.9 Anxiety disorder, unspecified; I73.9 Peripheral vascular disease, unspecified; F32.9 Major depressive disorder, single episode, unspecified; G40.909 Epilepsy, unspecified, not intractable, without status epilepticus; I67.9 Cerebrovascular disease, unspecified; R60.0 Localized edema; J96.21 Acute and chronic respiratory failure with hypoxia; J20.9 Acute bronchitis, unspecified; R91.1 Solitary pulmonary nodule
CPT/HCPCS: 71010; 71020; 74230; 76705; 80048; 80053; 83605; 83735; 84484; 85025; 85027; 85610; 85730; 86850; 86870; 86900; 86901; 86905; 86920; 87040; 92526 GN; 92611 GN; 93005; 93925; 94640; 94640 76; 94760; 94799; 97530 GP; 99202; 99281; 99285; J0295; J0696; J1644; J1940; J2930; J3475; J7030; J7050; J7512; J7644; P9016

== ENCOUNTER 2017-02-02 02:05 | Inpatient (IN) | payer OTHER ==
[~2017-02-02] VITALS: Ht 170.2 cm; Wt 98.0 kg
[~2017-02-02 02:05] MED LIST changes: +BACTRIM,SEPT1 TABLET PO; +CILOSTAZOL100 MG PO; +HYDRALAZINE HC100 MG PO; +MYCOSTATIN 100,60 ML PO; +PROTONIX20 MG PO; +Thiamine,Vitamin B1 PO; +[UNRECOGNIZED DRUG - REMARK]
[2017-02-02 02:38] LABS: HEMATOCRIT 29.8 % (38.0-50.0); MCH 34.6 PG (29.0-34.0); MCHC 34.2 G/DL (30.0-36.0); PLATELET COUNT 230 K/uL (156-360); RBC DIS.WIDTH-CV 17.3 % (11.8-14.6); RBC DIS.WIDTH-SD 64.2 % (39-53); RED BLOOD COUNT 2.95 M/uL (4.00-5.50); WHITE BLOOD COUNT 7.9 K/uL (4.1-10.2)
[2017-02-02 02:45] LABS: CHLORIDE 94 mEq/L (99-109); POTASSIUM 3.7 mEq/L (3.7-5.4); SODIUM 135 mEq/L (136-147)
[2017-02-02 02:48] LABS: ANION GAP 14 MEQ/L (2-14)
[2017-02-02 02:49] LABS: GLUCOSE 194 mg/dL (70-99)
[2017-02-02 02:51] LABS: GFR ESTIMATE (CALCULATED) > 59 mL/min/
[2017-02-02 02:52] LABS: UREA NITROGEN (BUN) 13 mg/dL (9-23)
[2017-02-02 02:58] LABS: PTT 26.8 (25-32)
[2017-02-02 03:01] LABS: TROP-I INTERPRETATION NEGATIVE; TROPONIN-I 0.01 ng/mL (0.0-0.30)
[2017-02-02] MEDS ORDERED: DELTASONE20 M1 PO (14:18)
[2017-02-02] MEDS ORDERED: PROTONIX20 MG PO (14:19)
[2017-02-02] MEDS ORDERED: IBUPROFEN600 MG PO (14:22)
[2017-02-02] MEDS ORDERED: TAMSULOSIN HCL0.4 MG PO (14:34)
[2017-02-02 14:56] VITALS: BP 116/86
[2017-02-02 18:54] VITALS: BP 118/60
[2017-02-02 23:21] VITALS: BP 127/76
[2017-02-03 04:47] VITALS: BP 119/56
[2017-02-03 06:36] LABS: ANION GAP 5 MEQ/L (2-14); CHLORIDE 91 MEQ/L (99-109); GFR ESTIMATE (CALCULATED) > 59 mL/min/; GLUCOSE 132 mg/dL (70-99); POTASSIUM 4.4 MEQ/L (3.7-5.4); SAMPLE HEMOLYSIS CHECK 0; SAMPLE ICTERIC CHECK 0; SAMPLE LIPEMIA CHECK 0; SODIUM 133 MEQ/L (136-147); UREA NITROGEN (BUN) 20 mg/dL (9-23)
[2017-02-03 07:39] VITALS: BP 122/57
[2017-02-03 11:18] VITALS: BP 117/56
[2017-02-03 15:31] VITALS: BP 108/55
[2017-02-03 21:10] VITALS: BP 135/79
[2017-02-04 00:10] VITALS: BP 168/77
[2017-02-04 03:28] VITALS: BP 159/78
[2017-02-04 08:00] VITALS: BP 121/71
[2017-02-04] MEDS ORDERED: SPIRIVA RESPIMAT4 GM IH (09:11)
[2017-02-04] MEDS ORDERED: ADVAIR HFA120 INHALA IH (09:12)
[2017-02-04] MEDS ORDERED: BENZONATATE100 MG PO (09:13)
[2017-02-04] MEDS ORDERED: CEFTIN250 MG PO (09:16)
[2017-02-04] MEDS ORDERED: PREDNISONE10 MG PO (09:18)
[2017-02-04] MEDS ORDERED: LEVETIRACETAM500 MG PO (09:20)
[2017-02-04] MEDS ORDERED: AMLODIPINE BESYL5 MG PO (09:22)
[2017-02-04 12:13] VITALS: BP 136/61
[2017-02-04 15:16] VITALS: BP 115/59
[2017-02-04 20:15] VITALS: BP 139/72
[2017-02-05 00:06] VITALS: BP 139/62
[2017-02-05 04:34] VITALS: BP 132/68
[2017-02-05 05:44] LABS: HEMATOCRIT 25.9 % (38.0-50.0); MCH 34.8 PG (29.0-34.0); MCV 102.4 FL (86-99); MEAN PLAT.VOLUME 8.7 uM^3 (9.0-12.4); NRBC (%) 0.2 /100 WBC (0-0); PLATELET COUNT 247 K/uL (156-360); RBC DIS.WIDTH-CV 17.2 % (11.8-14.6); RBC DIS.WIDTH-SD 65.6 % (39-53); RED BLOOD COUNT 2.53 M/uL (4.00-5.50)
[2017-02-05 05:45] LABS: WHITE BLOOD COUNT 11.4 K/uL (4.1-10.2)
[2017-02-05 06:35] LABS: ALKALINE PHOSPHATASE 38 IU/L (3-129); ANION GAP 8 MEQ/L (2-14); CHLORIDE 98 MEQ/L (99-109); GFR ESTIMATE (CALCULATED) > 59 mL/min/; GLUCOSE 125 mg/dL (70-99); SAMPLE HEMOLYSIS CHECK 0; SAMPLE ICTERIC CHECK 0; SAMPLE LIPEMIA CHECK 0; SODIUM 138 MEQ/L (136-147); UREA NITROGEN (BUN) 22 mg/dL (9-23)
[2017-02-05 06:38] LABS: TOTAL BILIRUBIN 0.2 MG/DL (0.0-1.0)
[2017-02-05 07:45] VITALS: BP 132/76
[2017-02-05 12:29] VITALS: BP 110/73
[2017-02-05 16:00] VITALS: BP 120/53
[2017-02-06 00:02] VITALS: BP 148/64
[2017-02-06 15:22] VITALS: BP 146/72
[2017-02-06 20:00] VITALS: BP 148/77
[2017-02-06 23:14] VITALS: BP 131/60
[2017-02-07 07:22] VITALS: BP 151/74
[2017-02-07 15:27] VITALS: BP 127/87
[2017-02-07 23:04] VITALS: BP 108/61
[2017-02-08 08:17] VITALS: BP 124/61
[2017-02-08 17:25] LABS: HEMATOCRIT 29.1 % (38.0-50.0); MCH 34.7 PG (29.0-34.0); MCV 102.1 FL (86-99); MEAN PLAT.VOLUME 9.2 uM^3 (9.0-12.4); NRBC (%) 0.4 /100 WBC (0-0); PLATELET COUNT 250 K/uL (156-360); RBC DIS.WIDTH-CV 17.2 % (11.8-14.6); RBC DIS.WIDTH-SD 65.1 % (39-53); RED BLOOD COUNT 2.85 M/uL (4.00-5.50); WHITE BLOOD COUNT 13.5 K/uL (4.1-10.2)
[2017-02-08 22:48] VITALS: BP 144/82
[2017-02-09 06:54] LABS: HEMATOCRIT 26.3 % (38.0-50.0); MCH 34.6 PG (29.0-34.0); MCHC 34.2 G/DL (30.0-36.0); MCV 101.2 FL (86-99); MEAN PLAT.VOLUME 8.8 uM^3 (9.0-12.4); NRBC (%) 0.4 /100 WBC (0-0); PLATELET COUNT 243 K/uL (156-360); RBC DIS.WIDTH-CV 17.1 % (11.8-14.6); RBC DIS.WIDTH-SD 63.5 % (39-53); WHITE BLOOD COUNT 11.2 K/uL (4.1-10.2)
[2017-02-09 07:21] VITALS: BP 121/60
[2017-02-09 16:54] VITALS: BP 100/62
[2017-02-09 23:08] VITALS: BP 102/55
[2017-02-10 06:01] LABS: EOSINOPHIL (%) 0 % (0-5); HEMATOCRIT 26.4 % (38.0-50.0); IMMATURE GRANULOCYTE (%) 2.9 % (0.0-0.7); IMMATURE GRANULOCYTE COUNT 0.3 K/uL; INSTRUMENT ABS NEUTROPHIL CT 9.8 K/uL; LYMPHOCYTE COUNT 0.5 K/uL (1.0-2.8); MCH 34.6 PG (29.0-34.0); MCHC 34.5 G/DL (30.0-36.0); MCV 100.4 FL (86-99); MEAN PLAT.VOLUME 8.6 uM^3 (9.0-12.4); MONOCYTE (%) 6.7 % (3-12); MONOCYTE COUNT 0.8 K/uL (0-0.8); NEUTROPHIL (%) 86.1 % (45-76); NEUTROPHIL COUNT 9.8 K/uL (1.8-6.4); NRBC (%) 0.3 /100 WBC (0-0); PLATELET COUNT 243 K/uL (156-360); RBC DIS.WIDTH-CV 17.1 % (11.8-14.6); RBC DIS.WIDTH-SD 63.1 % (39-53); RED BLOOD COUNT 2.63 M/uL (4.00-5.50); WHITE BLOOD COUNT 11.4 K/uL (4.1-10.2)
[2017-02-10 06:32] LABS: ANION GAP 9 MEQ/L (2-14); CHLORIDE 97 MEQ/L (99-109); GFR ESTIMATE (CALCULATED) > 59 mL/min/; GLUCOSE 123 mg/dL (70-99); SAMPLE HEMOLYSIS CHECK 0; SAMPLE ICTERIC CHECK 0; SAMPLE LIPEMIA CHECK 0; SODIUM 137 MEQ/L (136-147); UREA NITROGEN (BUN) 24 mg/dL (9-23)
[2017-02-10 08:32] VITALS: BP 120/60
[2017-02-10 17:14] VITALS: BP 106/61
[2017-02-10 23:35] VITALS: BP 96/54
[2017-02-11 06:32] LABS: EOSINOPHIL (%) 0 % (0-5); HEMATOCRIT 26.5 % (38.0-50.0); IMMATURE GRANULOCYTE (%) 3.4 % (0.0-0.7); IMMATURE GRANULOCYTE COUNT 0.4 K/uL; INSTRUMENT ABS NEUTROPHIL CT 9.3 K/uL; LYMPHOCYTE COUNT 0.6 K/uL (1.0-2.8); MCH 34.4 PG (29.0-34.0); MCV 101.1 FL (86-99); MEAN PLAT.VOLUME 8.6 uM^3 (9.0-12.4); MONOCYTE (%) 7.1 % (3-12); MONOCYTE COUNT 0.8 K/uL (0-0.8); NEUTROPHIL (%) 84.3 % (45-76); NEUTROPHIL COUNT 9.3 K/uL (1.8-6.4); NRBC (%) 0.3 /100 WBC (0-0); PLATELET COUNT 229 K/uL (156-360); RBC DIS.WIDTH-SD 63.6 % (39-53); RED BLOOD COUNT 2.62 M/uL (4.00-5.50)
[2017-02-11 06:55] LABS: ANION GAP 8 MEQ/L (2-14); CHLORIDE 97 MEQ/L (99-109); GFR ESTIMATE (CALCULATED) > 59 mL/min/; GLUCOSE 120 mg/dL (70-99); POTASSIUM 2.9 MEQ/L (3.7-5.4); SAMPLE HEMOLYSIS CHECK 0; SAMPLE ICTERIC CHECK 0; SAMPLE LIPEMIA CHECK 0; SODIUM 137 MEQ/L (136-147); UREA NITROGEN (BUN) 23 mg/dL (9-23)
[2017-02-11 07:20] VITALS: BP 110/65
[2017-02-11 15:19] VITALS: BP 112/67
[2017-02-11 20:06] VITALS: BP 92/54
[2017-02-11 23:38] VITALS: BP 100/54
[2017-02-12 07:16] LABS: MCH 34.7 PG (29.0-34.0); MCHC 34.4 G/DL (30.0-36.0); MCV 100.7 FL (86-99); MEAN PLAT.VOLUME 8.4 uM^3 (9.0-12.4); NRBC (%) 0.3 /100 WBC (0-0); PLATELET COUNT 219 K/uL (156-360); RBC DIS.WIDTH-SD 63.2 % (39-53); RED BLOOD COUNT 2.68 M/uL (4.00-5.50); WHITE BLOOD COUNT 11.8 K/uL (4.1-10.2)
[2017-02-12 07:27] VITALS: BP 139/75
[2017-02-12 07:43] LABS: ANION GAP 7 MEQ/L (2-14); CHLORIDE 97 MEQ/L (99-109); GFR ESTIMATE (CALCULATED) > 59 mL/min/; GLUCOSE 93 mg/dL (70-99); POTASSIUM 3.4 MEQ/L (3.7-5.4); SAMPLE HEMOLYSIS CHECK 0; SAMPLE ICTERIC CHECK 0; SAMPLE LIPEMIA CHECK 0; SODIUM 134 MEQ/L (136-147); UREA NITROGEN (BUN) 19 mg/dL (9-23)
[2017-02-12 07:54] LABS: THEOPHYLLINE 23.6 MCG/ML (10-20)
[2017-02-12 15:35] VITALS: BP 141/76
[2017-02-12 22:49] VITALS: BP 133/68
[2017-02-13 08:36] VITALS: BP 141/73
[2017-02-13] MEDS ORDERED: TYLENOL REGULA325 MG PO (10:30)
[2017-02-13] MEDS ORDERED: ADVAIR HFA120 INHALA IH (10:30)
[2017-02-13] MEDS ORDERED: THEO-DUR,THEOC300 MG PO (10:30)
[2017-02-13] MEDS ORDERED: FOLIC ACID1 MG PO (10:30)
[2017-02-13] MEDS ORDERED: AMOX TR-K CLV1 EAC4 PO (10:30)
[2017-02-13] MEDS ORDERED: VENTOLIN HFA18 GM IH (10:30)
[2017-02-13] MEDS ORDERED: TAMSULOSIN HCL0.4 MG PO (10:30)
[2017-02-13] MEDS ORDERED: LEVETIRACETAM500 MG PO (10:30)
[2017-02-13] MEDS ORDERED: DUONEB 2.5-0.5 M3 ML AEROSOL (10:30)
[2017-02-13] MEDS ORDERED: Thiamine,Vitamin B1 PO (10:30)
[2017-02-13] MEDS ORDERED: APRESOLINE100 MG PO (10:30)
[2017-02-13] MEDS ORDERED: CILOSTAZOL100 MG PO (10:30)
[2017-02-13] MEDS ORDERED: LISINOPRIL20 MG PO (10:30)
[2017-02-13] MEDS ORDERED: MONTELUKAST SOD10 MG PO (10:30)
[2017-02-13] MEDS ORDERED: Ocean Nasal 0.65% BOTH NARES (10:30)
[2017-02-13] MEDS ORDERED: ASPIR-LOW81 MG PO (10:30)
[2017-02-13] MEDS ORDERED: KLOR-CON M1010 MEQ PO (10:30)
== END 2017-02-13 15:20 | DRG 190 ==
LOC: EME → EDBD 02:05 → EME 02:05 → EDOF 07:53 → 5WEST 14:51 → 5EAST 02-03 10:14 → 5WEST 02-03 10:14 → 5EAST 02-06 09:06
PROVIDERS: Family Medicine; Internal Medicine; Internal Medicine Pulmonary Disease
DX: J44.1 Chronic obstructive pulmonary disease with (acute) exacerbation (principal); J18.9 Pneumonia, unspecified organism; R73.9 Hyperglycemia, unspecified; J96.11 Chronic respiratory failure with hypoxia; F17.210 Nicotine dependence, cigarettes, uncomplicated; E87.1 Hypo-osmolality and hyponatremia; G40.909 Epilepsy, unspecified, not intractable, without status epilepticus; F10.20 Alcohol dependence, uncomplicated; F41.9 Anxiety disorder, unspecified; R06.4 Hyperventilation; I10 Essential (primary) hypertension; R22.2 Localized swelling, mass and lump, trunk; R05 Cough; I73.9 Peripheral vascular disease, unspecified; I77.1 Stricture of artery; K21.9 Gastro-esophageal reflux disease without esophagitis; M79.89 Other specified soft tissue disorders; Z99.81 Dependence on supplemental oxygen
CPT/HCPCS: 71010; 71020; 71250; 80048; 80053; 80198; 83605; 83735; 83880; 84484; 85025; 85027; 85610; 85730; 86870; 86900; 86901; 86905; 86920; 87040; 93005; 93970; 94640; 94640 76; 94644; 94660; 94799; 97530 GO; 97530 GP; 99202; 99281; 99285; G0378; J0696; J1100; J1650; J1956; J2270; J2543; J2920; J2930; J3480; J7050; J7512

== ENCOUNTER 2017-03-08 09:33 | Inpatient (IN) | payer OTHER ==
[~2017-03-08] VITALS: Ht 170.2 cm; Wt 67.1 kg
[~2017-03-08 09:33] MED LIST changes: +AMOX TR-K CLV1 EAC4 PO; +ASPIR-LOW81 MG PO; +BENZONATATE100 MG PO; +CEFTIN250 MG PO; +KLOR-CON M1010 MEQ PO; +Ocean Nasal 0.65% BOTH NARES; +THEO-DUR,THEOC300 MG PO; +TYLENOL REGULA325 MG PO
[2017-03-08 10:51] LABS: CHLORIDE 91 mEq/L (99-109); POTASSIUM 4.8 mEq/L (3.7-5.4); SODIUM 131 mEq/L (136-147)
[2017-03-08 10:52] LABS: GLUCOSE 100 mg/dL (70-99)
[2017-03-08 10:54] LABS: ANION GAP 11 MEQ/L (2-14)
[2017-03-08 10:56] LABS: GFR ESTIMATE (CALCULATED) > 59 mL/min/; HEMATOCRIT 32.4 % (38.0-50.0); MCH 34.4 PG (29.0-34.0); MCHC 34.6 G/DL (30.0-36.0); MCV 99.4 FL (86-99); MEAN PLAT.VOLUME 10.1 uM^3 (9.0-12.4); NRBC (%) 0.1 /100 WBC (0-0); PLATELET COUNT 392 K/uL (156-360); RBC DIS.WIDTH-CV 16.9 % (11.8-14.6); RBC DIS.WIDTH-SD 62.4 % (39-53); RED BLOOD COUNT 3.26 M/uL (4.00-5.50); WHITE BLOOD COUNT 18.9 K/uL (4.1-10.2)
[2017-03-08 10:57] LABS: UREA NITROGEN (BUN) 22 mg/dL (9-23)
[2017-03-08 11:03] LABS: TROP-I INTERPRETATION NEGATIVE; TROPONIN-I 0.02 ng/mL (0.0-0.30)
[2017-03-08 12:36] LABS: ABS NEUTROPHIL COUNT 14.6; ANISOCYTOSIS 1+; ATYPICAL LYMPHOCYTE 0.9 %; EOSINOPHIL ABS CT 0; LYMPHOCYTES 1.7 % (15.0-45.0); MACROCYTES 2+; MICROCYTOSIS 1+; MYELOCYTES 0.9 %; OVALOCYTES 1+; PLAT.SUFFICIENCY INCREASED; SEG.NEUTROPHILS 77.4 % (46.0-76.0); TEAR DROP CELLS 1+
[2017-03-08] MEDS ORDERED: THIAMINE HCL100 MG PO (14:02)
[2017-03-08] MEDS ORDERED: OCEAN NASAL 0.645 ML BOTH NARES (14:02)
[2017-03-08] MEDS ORDERED: THEOCHRON200 MG PO (14:12)
[2017-03-08 16:34] LABS: TROP-I INTERPRETATION NEGATIVE; TROPONIN-I < 0.01 ng/mL (0.0-0.30)
[2017-03-08 22:30] VITALS: BP 157/100
[2017-03-08 22:54] VITALS: BP 143/79
[2017-03-09 03:38] VITALS: BP 131/59
[2017-03-09 07:42] VITALS: BP 120/69
[2017-03-09 11:37] LABS: ADD MIUA? YES; BILIRUBIN NEGATIVE; BLOOD NEGATIVE; COLOR YELLOW ((YELLOW)); GLUCOSE (STRIP) NEGATIVE; KETONES NEGATIVE; LEUKOCYTES TRACE; NITRITE NEGATIVE; PROTEIN (STRIP) NEGATIVE; SPECIFIC GRAVITY 1.017 (1.000-1.030); UROBILINOGEN 0.2 MG/DL (0.2-1.0)
[2017-03-09 11:53] LABS: BACTERIA RARE /HPF; EPITHELIAL CELLS NONE SEEN /HPF; MUCUS TRACE /LPF; RED BLOOD CELLS 0-5 /HPF (0-5); WHITE BLOOD CELLS 0-5 /HPF (0-5)
[2017-03-09 15:50] VITALS: BP 133/75
[2017-03-09 20:17] VITALS: BP 90/65
[2017-03-09 21:00] VITALS: BP 105/78
[2017-03-09 23:48] VITALS: BP 114/59
[2017-03-10 03:58] VITALS: BP 110/66
[2017-03-10 07:08] LABS: HEMATOCRIT 27.5 % (38.0-50.0); MCH 35.2 PG (29.0-34.0); MCHC 34.5 G/DL (30.0-36.0); MCV 101.9 FL (86-99); MEAN PLAT.VOLUME 9.7 uM^3 (9.0-12.4); PLATELET COUNT 286 K/uL (156-360); RBC DIS.WIDTH-CV 16.5 % (11.8-14.6); RBC DIS.WIDTH-SD 62.3 % (39-53)
[2017-03-10 07:11] LABS: WHITE BLOOD COUNT 12.7 K/uL (4.1-10.2)
[2017-03-10 07:13] VITALS: BP 104/59
[2017-03-10 07:49] LABS: ALKALINE PHOSPHATASE 41 IU/L (3-129); ANION GAP 7 MEQ/L (2-14); CHLORIDE 93 MEQ/L (99-109); GFR ESTIMATE (CALCULATED) > 59 mL/min/; GLUCOSE 88 mg/dL (70-99); SAMPLE HEMOLYSIS CHECK 0; SAMPLE ICTERIC CHECK 0; SAMPLE LIPEMIA CHECK 0; SODIUM 131 MEQ/L (136-147); TOTAL BILIRUBIN 0.3 MG/DL (0.0-1.0); UREA NITROGEN (BUN) 14 mg/dL (9-23)
[2017-03-10 07:50] LABS: POTASSIUM 3.8 MEQ/L (3.7-5.4)
[2017-03-10 11:22] VITALS: BP 99/56
[2017-03-10 15:46] VITALS: BP 119/54
[2017-03-10 19:40] VITALS: BP 98/59
[2017-03-10 20:00] VITALS: BP 145/78
[2017-03-11] VITALS (9 sets, daily range): BP systolic 83–137; BP diastolic 50–79
[2017-03-11 06:56] LABS: HEMATOCRIT 24.9 % (38.0-50.0); MCH 35.5 PG (29.0-34.0); MCHC 35.3 G/DL (30.0-36.0); MCV 100.4 FL (86-99); MEAN PLAT.VOLUME 10.4 uM^3 (9.0-12.4); PLATELET COUNT 236 K/uL (156-360); RBC DIS.WIDTH-CV 16.3 % (11.8-14.6); RBC DIS.WIDTH-SD 59.7 % (39-53); RED BLOOD COUNT 2.48 M/uL (4.00-5.50); WHITE BLOOD COUNT 13.5 K/uL (4.1-10.2)
[2017-03-11 07:46] LABS: ANION GAP 11 MEQ/L (2-14); CHLORIDE 90 MEQ/L (99-109); GFR ESTIMATE (CALCULATED) 50 mL/min/; POTASSIUM 4.2 MEQ/L (3.7-5.4); SAMPLE HEMOLYSIS CHECK 0; SAMPLE ICTERIC CHECK 0; SAMPLE LIPEMIA CHECK 0; SODIUM 126 MEQ/L (136-147)
[2017-03-11 07:47] LABS: GLUCOSE 143 mg/dL (70-99); UREA NITROGEN (BUN) 27 mg/dL (9-23)
[2017-03-12] VITALS (7 sets, daily range): BP systolic 86–162; BP diastolic 48–74
[2017-03-12 07:30] LABS: MCH 35.3 PG (29.0-34.0); MCHC 35.5 G/DL (30.0-36.0); MCV 99.5 FL (86-99); MEAN PLAT.VOLUME 10.6 uM^3 (9.0-12.4); PLATELET COUNT 229 K/uL (156-360); RBC DIS.WIDTH-CV 16.5 % (11.8-14.6); RED BLOOD COUNT 2.21 M/uL (4.00-5.50); WHITE BLOOD COUNT 24.3 K/uL (4.1-10.2)
[2017-03-12 07:56] LABS: ANION GAP 9 MEQ/L (2-14); CHLORIDE 94 MEQ/L (99-109); GFR ESTIMATE (CALCULATED) > 59 mL/min/; GLUCOSE 126 mg/dL (70-99); POTASSIUM 4.2 MEQ/L (3.7-5.4); SAMPLE HEMOLYSIS CHECK 0; SAMPLE ICTERIC CHECK 0; SAMPLE LIPEMIA CHECK 0; SODIUM 129 MEQ/L (136-147); UREA NITROGEN (BUN) 27 mg/dL (9-23)
[2017-03-13] VITALS (7 sets, daily range): BP systolic 126–176; BP diastolic 61–92
[2017-03-13 10:20] LABS: BASOPHIL COUNT 0.1 K/uL (0-0.1); EOSINOPHIL (%) 0 % (0-5); HEMATOCRIT 29.6 % (38.0-50.0); IMMATURE GRANULOCYTE COUNT 0.9 K/uL; INSTRUMENT ABS NEUTROPHIL CT 27.1 K/uL; LYMPHOCYTE COUNT 0.4 K/uL (1.0-2.8); MCH 34.2 PG (29.0-34.0); MCHC 34.1 G/DL (30.0-36.0); MCV 100.3 FL (86-99); MEAN PLAT.VOLUME 8.8 uM^3 (9.0-12.4); MONOCYTE (%) 3.9 % (3-12); MONOCYTE COUNT 1.2 K/uL (0-0.8); NEUTROPHIL (%) 91.4 % (45-76); NEUTROPHIL COUNT 27.1 K/uL (1.8-6.4); NRBC (%) 0.1 /100 WBC (0-0); RBC DIS.WIDTH-CV 16.3 % (11.8-14.6); WHITE BLOOD COUNT 29.6 K/uL (4.1-10.2)
[2017-03-13 10:21] LABS: PLATELET COUNT 324 K/uL (156-360); RED BLOOD COUNT 2.95 M/uL (4.00-5.50)
[2017-03-14] VITALS (8 sets, daily range): BP systolic 131–193; BP diastolic 59–92
[2017-03-15 04:02] VITALS: BP 182/98
[2017-03-15 04:20] VITALS: BP 155/88
[2017-03-15 06:00] VITALS: BP 147/95
[2017-03-15 06:10] LABS: BASE EXCESS -7.8 mEq/L (-3 to +3); BICARBONATE 20.8 mEq/L (22-26); CARBOXY HGB 1.7 % (0-5); METHEMOGLOBIN 2.1 % (0-1.5); PCO2 57 mm Hg (35-45); PO2 505 mm Hg (80-100); SITE A-LINE
[2017-03-15 06:11] LABS: COMMENTS - BLOOD GASES C+; DEVICE 840; FI02 100 %; MECHANICAL RATE 16 resp/min; MODE AC; PEEP 5 CM/H20; TIDAL VOLUME 450 ML; TOTAL RESP RATE 16 resp/min; pH 7.17 (7.35-7.45)
[2017-03-15 07:21] LABS: METH RESISTANT S AUREUS PCR NEGATIVE (NEGATIVE)
[2017-03-15 07:25] LABS: PROBE CHECK PASS; SPECIMEN PROCESSING CONTROL PASS
[2017-03-15 08:00] VITALS: BP 123/81
[2017-03-15 09:29] LABS: ANION GAP 6 MEQ/L (2-14); CHLORIDE 102 MEQ/L (99-109); GFR ESTIMATE (CALCULATED) > 59 mL/min/; GLUCOSE 217 mg/dL (70-99); MAGNESIUM 1.8 mg/dl (1.3-2.7); POTASSIUM 3.9 MEQ/L (3.7-5.4); SAMPLE HEMOLYSIS CHECK 0; SAMPLE ICTERIC CHECK 0; SAMPLE LIPEMIA CHECK 0; SODIUM 134 MEQ/L (136-147); UREA NITROGEN (BUN) 21 mg/dL (9-23)
[2017-03-15 09:31] LABS: MCH 35.2 PG (29.0-34.0); MCHC 34.1 G/DL (30.0-36.0); MCV 103.4 FL (86-99); NRBC (%) 0.1 /100 WBC (0-0); RBC DIS.WIDTH-CV 16.7 % (11.8-14.6); RBC DIS.WIDTH-SD 64.3 % (39-53); RED BLOOD COUNT 2.61 M/uL (4.00-5.50)
[2017-03-15 09:38] LABS: WHITE BLOOD COUNT 38.6 K/uL (4.1-10.2)
[2017-03-15 09:43] LABS: TROP-I INTERPRETATION POSITIVE; TROPONIN-I 1.01 ng/mL (0.0-0.30)
[2017-03-15 10:09] LABS: ABS NEUTROPHIL COUNT 34.5; ANISOCYTOSIS 1+; ATYPICAL LYMPHOCYTE 0.9 %; BURR CELLS 1+; EOSINOPHIL ABS CT 0; INSTRUMENT ABS NEUTROPHIL CT 32.7 K/uL; LYMPHOCYTES 0.9 % (15.0-45.0); MACROCYTES 1+; MICROCYTOSIS 1+; MYELOCYTES 1.7 %; PLATELET CLUMPS PRESENT - PLATELET COUNT APPEARS ADQ.; SEG.NEUTROPHILS 89.5 % (46.0-76.0); TEAR DROP CELLS 1+
[2017-03-15 15:53] LABS: ALKALINE PHOSPHATASE 52 IU/L (3-129); DIRECT BILIRUBIN 0.1 mg/dL (0.0-0.3); TOTAL BILIRUBIN 0.3 MG/DL (0.0-1.0)
[2017-03-15 15:54] LABS: BASE EXCESS 1.3 mEq/L (-3 to +3); CARBOXY HGB 1.7 % (0-5); METHEMOGLOBIN 2.1 % (0-1.5)
[2017-03-15 15:55] LABS: BICARBONATE 25.9 mEq/L (22-26); COMMENTS - BLOOD GASES C+; DEVICE VENT; FI02 50 %; MECHANICAL RATE 20 resp/min; MODE A/C; PCO2 40 mm Hg (35-45); PO2 178 mm Hg (80-100); SITE A LINE; TOTAL RESP RATE 20 resp/min; pH 7.42 (7.35-7.45)
[2017-03-15 15:56] LABS: PEEP 5 CM/H20; TIDAL VOLUME 450 ML
[2017-03-15 16:24] LABS: TROP-I INTERPRETATION POSITIVE
[2017-03-15 17:08] LABS: POINT-OF-CARE METER ID UU13113803
[2017-03-15 21:50] LABS: TROP-I INTERPRETATION POSITIVE; TROPONIN-I 3.29 ng/mL (0.0-0.30)
[2017-03-16 00:14] LABS: POINT-OF-CARE METER ID UU13113731; POINT-OF-CARE USER ID LABHNS84
[2017-03-16 06:12] LABS: TROP-I INTERPRETATION POSITIVE; TROPONIN-I 2.27 ng/mL (0.0-0.30)
[2017-03-16 06:27] LABS: EOSINOPHIL (%) 0 % (0-5); HEMATOCRIT 25.3 % (38.0-50.0); IMMATURE GRANULOCYTE (%) 2.4 % (0.0-0.7); IMMATURE GRANULOCYTE COUNT 0.5 K/uL; INSTRUMENT ABS NEUTROPHIL CT 17.9 K/uL; LYMPHOCYTE COUNT 0.4 K/uL (1.0-2.8); MCH 35.4 PG (29.0-34.0); MCHC 33.6 G/DL (30.0-36.0); MCV 105.4 FL (86-99); MEAN PLAT.VOLUME 9.8 uM^3 (9.0-12.4); MONOCYTE (%) 5.7 % (3-12); MONOCYTE COUNT 1.1 K/uL (0-0.8); NEUTROPHIL (%) 89.6 % (45-76); NEUTROPHIL COUNT 17.9 K/uL (1.8-6.4); NRBC (%) 0.2 /100 WBC (0-0); PLATELET COUNT 247 K/uL (156-360); RBC DIS.WIDTH-CV 16.8 % (11.8-14.6); RBC DIS.WIDTH-SD 65.1 % (39-53); WHITE BLOOD COUNT 19.9 K/uL (4.1-10.2)
[2017-03-16 06:36] LABS: ALKALINE PHOSPHATASE 49 IU/L (3-129); ANION GAP 10 MEQ/L (2-14); CHLORIDE 106 MEQ/L (99-109); GFR ESTIMATE (CALCULATED) > 59 mL/min/; POTASSIUM 4.1 MEQ/L (3.7-5.4); SAMPLE HEMOLYSIS CHECK 0; SAMPLE ICTERIC CHECK 0; SAMPLE LIPEMIA CHECK 0; SODIUM 138 MEQ/L (136-147); UREA NITROGEN (BUN) 18 mg/dL (9-23)
[2017-03-16 06:48] LABS: GLUCOSE 110 mg/dL (70-99); TOTAL BILIRUBIN 0.2 MG/DL (0.0-1.0)
[2017-03-16 07:00] VITALS: BP 115/66
[2017-03-16 08:00] VITALS: BP 115/66
[2017-03-16 11:50] LABS: POINT-OF-CARE METER ID UU13113803
[2017-03-16 19:21] LABS: POINT-OF-CARE METER ID UU13113803
[2017-03-17 00:51] LABS: POINT-OF-CARE USER ID LABHNS84
[2017-03-17 05:07] LABS: POINT-OF-CARE USER ID LABHNS84
[2017-03-17 06:25] LABS: ALKALINE PHOSPHATASE 37 IU/L (3-129); ANION GAP 5 MEQ/L (2-14); CHLORIDE 110 MEQ/L (99-109); GFR ESTIMATE (CALCULATED) > 59 mL/min/; GLUCOSE 113 mg/dL (70-99); POTASSIUM 3.8 MEQ/L (3.7-5.4); SAMPLE HEMOLYSIS CHECK 0; SAMPLE ICTERIC CHECK 0; SAMPLE LIPEMIA CHECK 0; SODIUM 140 MEQ/L (136-147); TOTAL BILIRUBIN 0.2 MG/DL (0.0-1.0); UREA NITROGEN (BUN) 17 mg/dL (9-23)
[2017-03-17 07:00] VITALS: BP 113/68
[2017-03-17 10:00] VITALS: BP 159/97
[2017-03-17 11:00] VITALS: BP 159/97
[2017-03-17 11:51] LABS: POINT-OF-CARE USER ID 606021424
[2017-03-17 18:36] LABS: POINT-OF-CARE METER ID UU13113803
[2017-03-18 00:42] LABS: POINT-OF-CARE METER ID UU13113731
[2017-03-18 05:58] LABS: ALKALINE PHOSPHATASE 46 IU/L (3-129); ANION GAP 8 MEQ/L (2-14); CHLORIDE 110 MEQ/L (99-109); GFR ESTIMATE (CALCULATED) > 59 mL/min/; GLUCOSE 110 mg/dL (70-99); POTASSIUM 3.6 MEQ/L (3.7-5.4); SAMPLE HEMOLYSIS CHECK 0; SAMPLE ICTERIC CHECK 0; SAMPLE LIPEMIA CHECK 0; SODIUM 140 MEQ/L (136-147); TOTAL BILIRUBIN 0.2 MG/DL (0.0-1.0); UREA NITROGEN (BUN) 22 mg/dL (9-23)
[2017-03-18 07:00] VITALS: BP 108/65
[2017-03-18 08:37] LABS: HEMATOCRIT 26.5 % (38.0-50.0); MCH 35.5 PG (29.0-34.0); MCHC 32.8 G/DL (30.0-36.0); MCV 108.2 FL (86-99); MEAN PLAT.VOLUME 8.5 uM^3 (9.0-12.4); NRBC (%) 0.3 /100 WBC (0-0); PLATELET COUNT 264 K/uL (156-360); RBC DIS.WIDTH-CV 17.2 % (11.8-14.6); RBC DIS.WIDTH-SD 67.8 % (39-53); RED BLOOD COUNT 2.45 M/uL (4.00-5.50); WHITE BLOOD COUNT 20.9 K/uL (4.1-10.2)
[2017-03-18 09:00] VITALS: BP 179/96
[2017-03-18 13:06] VITALS: BP 190/81
== END 2017-03-18 14:42 | DRG 308 ==
LOC: EME 09:33 → EDOF 21:05 → 3EAST 21:05 → 4WEST 03-15 05:35
PROVIDERS: Anesthesiology; Emergency Medicine; Family Medicine; Internal Medicine; Internal Medicine Critical Care Medicine; Internal Medicine Pulmonary Disease
PROC: 0W9B30Z Drainage of Left Pleural Cavity with Drainage Device, Percutaneous Approach (ICD-10-PCS; principal; 2017-03-08)
PROC: 02HV33Z Insertion of Infusion Device into Superior Vena Cava, Percutaneous Approach (ICD-10-PCS; principal; 2017-03-08)
PROC: 0BH17EZ Insertion of Endotracheal Airway into Trachea, Via Natural or Artificial Opening (ICD-10-PCS; 2017-03-15)
PROC: 5A1945Z Respiratory Ventilation, 24-96 Consecutive Hours (ICD-10-PCS; 2017-03-15)
DX: I49.01 Ventricular fibrillation (principal); I46.8 Cardiac arrest due to other underlying condition; S22.42XA Multiple fractures of ribs, left side, initial encounter for closed fracture; S27.0XXA Traumatic pneumothorax, initial encounter; J44.1 Chronic obstructive pulmonary disease with (acute) exacerbation; I10 Essential (primary) hypertension; W19.XXXA Unspecified fall, initial encounter; K21.9 Gastro-esophageal reflux disease without esophagitis; Z99.81 Dependence on supplemental oxygen; F17.200 Nicotine dependence, unspecified, uncomplicated; I46.9 Cardiac arrest, cause unspecified; Z51.5 Encounter for palliative care; Z87.01 Personal history of pneumonia (recurrent); F10.229 Alcohol dependence with intoxication, unspecified; J20.9 Acute bronchitis, unspecified; J44.0 Chronic obstructive pulmonary disease with (acute) lower respiratory infection; J93.82 Other air leak; R56.9 Unspecified convulsions; E87.1 Hypo-osmolality and hyponatremia; J18.9 Pneumonia, unspecified organism; Z95.1 Presence of aortocoronary bypass graft; R60.0 Localized edema; I73.9 Peripheral vascular disease, unspecified; D64.9 Anemia, unspecified; G40.109 Localization-related (focal) (partial) symptomatic epilepsy and epileptic syndromes with simple partial seizures, not intractable, without status epilepticus; E41 Nutritional marasmus; Z68.1 Body mass index [BMI] 19.9 or less, adult; Y92.009 Unspecified place in unspecified non-institutional (private) residence as the place of occurrence of the external cause; I34.0 Nonrheumatic mitral (valve) insufficiency; I51.7 Cardiomegaly
CPT/HCPCS: 31500; 36600; 71010; 71020; 71250; 72070; 80048; 80053; 80076; 80202; 81003; 82140; 82803; 82948; 83605; 83735; 84100; 84484; 85007; 85025; 85027; 87040; 87070; 87075; 87086; 87205; 87641; 93005; 93306; 94002; 94003; 94010; 94640; 94640 76; 94667; 94668; 94799; 99202; 99281; 99285; J0282; J0360; J0696; J1160; J1650; J1815; J1940; J2060; J2270; J2543; J2704; J2920; J3010; J3370; J3475; J7030; J7050; J7512; S0028